=== PATIENT | female | born 1955 | race Caucasian/White ===

== ENCOUNTER → 2016-06-14 | Outpatient (CLI) | payer OTHER ==
--- NOTE | 2016-06-14 12:27 | MA ---
Screening Digital Mammogram With iCAD Analysis Clinical Indications: Routine screening. Technique: Standard cephalocaudal projections are obtained. Digital breast tomosynthesis was performe d in the MLO projection with reconstruction at 1.0 mm slice thickness and composite MLO views reconst ructed. This examination is processed by the iCAD computer aided detection system. Comparison: May 2015. Breast density: Type B; Scattered fibroglandular densities. Findings: CAD was reviewed. No masses, suspicious calcifications or secondary signs of malignancy are seen. There has been no significant change in the appearance of either breast. Impression: Negative mammogram. BI-RADS 1. Recommendation: Routine mammographic screening in one year as long as physical examination is negativ [facility]. Negative mammography should not preclude additional workup of a clinically suspicious finding. The patient's information is entered into a reminder system with a target due date for her next mammo gram.
== END ==
LOC: FIMAGING 09:48
DX: Z12.31 Encounter for screening mammogram for malignant neoplasm of breast (principal)
CPT/HCPCS: G0202

== ENCOUNTER → 2017-06-16 | Outpatient (CLI) | payer OTHER | LOC: FIMAGING 09:52 | PROVIDERS: ATTEND Obstetrics & Gynecology Hospice and Palliative Medicine | DX: Z12.31 Encounter for screening mammogram for malignant neoplasm of breast (principal) ==

== ENCOUNTER 2018-01-01 | Emergency (ER) | payer OTHER | END 2018-01-01 15:03 | disposition home or self-care (01) | PROC: 0CQ1XZZ Repair Lower Lip, External Approach (ICD-10-PCS; principal; 2018-01-01) ==

== ENCOUNTER → 2018-06-19 | Outpatient (CLI) | payer OTHER | LOC: FIMAGING 13:02 | PROVIDERS: ATTEND Internal Medicine | DX: Z12.31 Encounter for screening mammogram for malignant neoplasm of breast (principal) ==